=== PATIENT | male | born 1990 | race African-American/Black ===

== ENCOUNTER 2017-08-12 05:08 | Emergency (ER) | payer OTHER ==
[~2017-08-12] VITALS: Ht 170.2 cm; Wt 68.0 kg
[2017-08-12 05:15] VITALS: BP 136/76
[2017-08-12] MEDS ORDERED: LORazepam 1mg tab ORAL ONE (05:15)
--- NOTE | 2017-08-12 05:25 | Emergency Room Report ---
History of Present Illness General Chief Complaint: Substance Abuse Source: Patient, EMS Present Illness HPI 27-year-old male history of polysubstance abuse presenting with meth abuse. Patient states that he got kicked out of rehabilitation today, states that he smoked a lot of today. Now feeling very anxious and paranoid. No SI or HI. No delusions. States that his mom lives in [place], and he told her that he got kicked out of rehabilitation. Patient states that he feels very bad presenting kicked out of rehabilitation. Currently denying any fever chills chest pain shortness of breath nausea vomiting. She states that he is very anxious. Allergies: Coded Allergies: No Known Allergies (Unverified , 08/12/17) Patient History Past Medical History: see triage record Past Surgical History: none Pertinent Family History: none Reviewed Nursing Documentation: PMH: Agreed, PSxH: Agreed Nursing Documentation-PMH Past Medical History: No History, Except For Hx Hypertension: Yes Review of Systems All Other Systems: negative except mentioned in HPI Physical Exam Vital Signs Date Time Temp Pulse Resp B/P (MAP) Pulse Ox O2 Delivery O2 Flow Rate FiO2 08/12/17 05:05 100.2 140 16 142/76 99 Room Air Sp02 EP Interpretation: reviewed, normal General Appearance: alert, GCS 15, non-toxic, mild distress Head: normocephalic, atraumatic Eyes: bilateral eye normal inspection, bilateral eye PERRL, bilateral eye EOMI ENT: normal ENT inspection, normal pharynx, normal voice, moist mucus membranes Neck: normal inspection, full range of motion, supple Respiratory: normal inspection, lungs clear, normal breath sounds, no respiratory distress, no retraction, no wheezing, speaking full sentences, chest symmetrical Cardiovascular #1: no edema, normal capillary refill, tachycardia Cardiovascular #2: 2+ radial (R), 2+ radial (L) Gastrointestinal: normal inspection, non tender, soft, non-distended, no guarding Genitourinary: no CVA tenderness Musculoskeletal: normal inspection, back normal, normal range of motion, non- tender Neurologic: normal inspection, alert, oriented x3, responsive, motor strength/ tone normal, sensory intact, normal gait, speech normal Psychiatric: normal inspection, judgement/insight normal, memory normal Skin: normal inspection, normal color, no rash, warm/dry, well hydrated, normal turgor Medical Decision Making Diagnostic Impression: Primary Impression: Methamphetamine abuse ER Course 27-year-old male presenting with meth intoxication. DDX: Meth intoxication ANO x4, does not smell of alcohol, denies any alcohol use Plan: will Ativan for anxiety Observe No SI HI or acute psych issue ER course:. Feels much better after Ativan Disposition: Patient is leaving AGAINST MEDICAL ADVICE Speech is not rapid, patient is coherent, patient is calm and cooperative Patient is clinically sober, is free from from distracting injury, and has intact judgement and capacity to decide to leave against medical advice. Patient came in for meth use and anxiety Patient verbalized understanding of my concern and my need to do labs, observation, but patient states "I feel better and I want to go home ". I explained to patient the risks of leaving AMA and patient informed that if they leave, they could get worse, ould become become critically ill, possibly become disabled or . Patient verbalized back to me understanding of these risks but still wants to leave. Please note that this Emergency Department Report was dictated using [employer] personal banker technology software, occasionally this can lead to erroneous entry secondary to interpretation by the dictation equipment Rhythm Strip EP Interpretation: Yes Rate: 130 Rhythm: NSR, no PVCs, no ectopy Last Vital Signs Date Time Temp Pulse Resp B/P (MAP) Pulse Ox O2 Delivery O2 Flow Rate FiO2 08/12/17 05:05 100.2 140 16 142/76 99 Room Air Disposition: AGAINST MEDICAL ADVICE Condition: Improved Scripts No Active Prescriptions or Reported Meds Patient Instructions: Stimulant Use Disorder-Methamphetamines Dorita Alfred M.D. Aug 12, 2017 05:25
[2017-08-12 05:40] VITALS: BP 122/78
== END 2017-08-12 05:40 | disposition left against medical advice (07) ==
LOC: EDBD 05:08 → EMR 05:40
DX: F15.10 Other stimulant abuse, uncomplicated (principal); I10 Essential (primary) hypertension
CPT/HCPCS: 99283